=== PATIENT | female | born 1940 | race Caucasian/White ===

== ENCOUNTER 2016-12-28 15:50 | Emergency (ER) | payer MEDICARE ==
[2016-12-28 18:24] LABS: Hemoglobin 13.5 gm/dL (12.5-16.0); Mean Cell Volume 101.9 fl (78-100); Mean Corpuscular Hgb Conc 31.4 g/dl (32-36); Mean Platelet Volume 10.6 fl (6.0-9.5); Neutrophil # 9.7 K/mm3 (1.3-6.0); Neutrophil % 75.4 % (42-75.0); Platelet Count 181 K/mm3 (150-450); Red Blood Count 4.22 M/mm3 (4.2-5.4); Red Cell Distribution Width 14.9 % (11.5-14.0); White Blood Count 12.8 K/mm3 (4.0-10.5)
[2016-12-28 18:34] LABS: Anion Gap 12.2 mmol/L (6.8-13.8); BUN/Creatinine Ratio 13.2 (9.0-21.6); Calcium * 9.3 mg/dL (7.9-10.9); Carbon Dioxide 29.9 mmol/L (24-32.6); Estimated Creat Clear 26.9; Potassium 4.1 mmol/L (3.4-4.6)
--- NOTE | 2016-12-28 18:57 | ERNOTE ---
ER Female HPI Date of Service: 12/28/16 Stated Complaint: UTI, NOT URINATING Time Seen by Provider: 12/28/16 18:36 Immunizations: IMMUNIZATION HX Immunizations Up to Date Yes History of Influenza Vaccine Yes Hx Pneumococcal Vaccination Yes Allergies/Adverse Reactions: Allergies Penicillins Allergy (Severe, Verified 12/28/16 16:14) Other states makes her stop breathing Home Medications: HOME MEDICATIONS ALPRAZolam [Xanax] 0.5 mg PO BID 11/25/15 [Last Taken Unknown] Aspirin [Aspirin EC] 81 mg PO DAILY 11/25/15 [Last Taken Unknown] Carbidopa/Levodopa 25/100 [Sinemet 25/100] 1 tab PO QID 11/25/15 [Last Taken Unknown] Ergocalciferol (Vitamin D2) [Vitamin D2] 1.25 unit PO Q7D 11/25/15 [Last Taken Unknown] Fluconazole [Diflucan] 200 mg PO DAILY 11/25/15 [Last Taken Unknown] Levothyroxine Sodium [Synthroid] 50 mcg PO DAILY 11/25/15 [Last Taken Unknown] Lisinopril [Zestril] 20 mg PO DAILY 11/25/15 [Last Taken Unknown] Mirtazapine [Remeron] 30 mg PO HS 11/25/15 [Last Taken Unknown] Propranolol HCl 80 mg PO DAILY 11/25/15 [Last Taken Unknown] Venlafaxine HCl [Effexor Xr] 150 mg PO DAILY 11/25/15 [Last Taken Unknown] - History of Present Illness Narrative: 76yo, F, presents to ER for UTI and concerns of UO. She was having dysuria and urinary frequency 2 days ago. She presented a UA to Dr. Crooks's office at 7: 00am and was started on Bactrim DS BID x3 days. She had not voided since 07:00am , until 6pm when she voided 1/2 UA cup full of urine in ER. Her dtrs are with her today and concerned as she has hx of Renal failure with creat of 4 in 2015. Modifying Factors - (Improves): Present: other - nothing Modifying Factors - (Worsens): Present: urinating Associated Symptoms: Present: abdominal pain - suprapubic, dysuria, urinary frequency. Absent: fever/chills, nausea, vomiting Review of Systems - Review of Systems Constitutional: Present: weakness. Absent: fever, chills Gastrointestinal/Abdominal: Present: abdominal pain - suprapubic region. Absent : nausea, vomiting, diarrhea - chronic, constipation Genitourinary: Present: frequency - on 12/26/16, decreased urinary output, other - concentrated urine. Absent: dysuria, hematuria - Patient's Past Medical History Patient History - Medical: Anemia, Anxiety, Depression, GERD, Migraines Patient History - Cardiac/Respiratory: No pertinent hx Patient History - Cancer: No Hx of Cancer Patient History - Surgical Procedures: Colonoscopy, Coronary Bypass Surgery, Hysterectomy, T & A, Other Patient History - Other: None - Family History Father Family History - Medical: , History Unknown Mother Family History - Medical: , History Unknown Family History - Cardiac/Respiratory: History Unknown - Social History Living Situations: alone Abuse History: No History of abuse Psych History: No pertinent hx Alcohol Use: none Drug Use: none - Immunizations Immunizations Up to Date: Yes Hx Pneumococcal Vaccination: Yes History of Influenza Vaccine: Yes Physical Exam - Physical Exam General Appearance: Present: wd/wn, alert, no apparent distress, other - pt in good spirits, making jokes about her dtr's to provider Respiratory: Present: no respiratory distress, normal breath sounds, chest nontender. Absent: crackles, rhonchi, wheezing Cardiovascular/Chest: Present: regular rate, rhythm, no murmur Gastrointestinal/Abdominal: Present: normal bowel sounds, nontender, nondistended, soft Back Exam: Present: no CVA tenderness Neurological Exam: Present: alert, oriented, normal mood/affect Skin Exam: Present: normal color, warm/dry ED Progress - Date and Time Seen: Date and Time: 12/28/16 21:08 Spoke with pt and dtr's in room. IVFs infusing. Family states she performs 4 breathing tx daily. they are requesting her Albuterol tx before dc, to prevent SOB when getting into the car. 12/28/16 22:45 Pt attempted to void, but unsuccessful. Iglesias cath inserted returning 175 UO. She then had an additional 30ml of clear yellow urine returned. pt reports to be feeling well and would like to be discharged home. Discussed importance of close monitoring, good fluid intake and monitoring UO at home. Advised to call Dr. Crooks's office tomorrow to discuss ER visit and f/u appt. They will return to ER if situation worsens or if not having adequate UO - Results and Orders Patient's Lab Results:: I have reviewed the patient's lab results. - Vital Signs Patient's Vital Signs:: I have reviewed the patient's vital signs. Vital Signs: Vital Signs 12/28/16 12/28/16 16:10 17:39 Temperature 36.4 C L Pulse Rate 84 82 Respiratory 12 12 Rate Blood Pressure 104/46 108/56 O2 Sat by Pulse 97 97 Oximetry - Progress/Reassessment Chief Complaint: Genitourinary Problem Progress:: Improved Departure Clinical Impression: Creatinine elevation UTI (urinary tract infection) Qualifiers: Urinary tract infection type: acute cystitis Hematuria presence: without hematuria Qualified Code(s): N30.00 - Acute cystitis without hematuria - Departure Disposition: Home self-care Condition: Stable Instructions: Urinary Tract Infection, Adult, [id number] Additional Instructions: Assure adequate fluid intake Measure urine output at home and keep log Call Dr. Crooks's office in am and notify of ER visit and home urine output and to schedule follow up appointment Continue antibiotics as ordered Return to ER if situation worsens or for any new or concerning symptoms Referrals: Ryanne Crooks DO [Primary Care Provider] -
[2016-12-28] MEDS ORDERED: NORMAL SALINE 1,000 ML IV ONE (19:09)
[2016-12-28] MEDS ORDERED: SULFAMETHOXAZOLE/TRIMETHOPRIM 1 TAB TABLET PO ONE (19:10)
[2016-12-28] MEDS ORDERED: SULFAMETHOXAZOLE/TRIMETHOPRIM 1 TAB TABLET ONE (19:12)
[2016-12-28] MEDS ORDERED: ALBUTEROL SULFATE 2.5 MG/0.5 ML VIAL.NEB IH ONE ×2 (21:06→21:09)
[2016-12-28 23:28] VITALS: BP 129/78
== END 2016-12-28 23:01 | disposition home or self-care (01) ==
LOC: ER 15:50
PROC: 0T9B70Z Drainage of Bladder with Drainage Device, Via Natural or Artificial Opening (ICD-10-PCS; principal; 2016-12-28)
DX: R94.4 Abnormal results of kidney function studies (principal); N30.00 Acute cystitis without hematuria; D64.9 Anemia, unspecified; K21.9 Gastro-esophageal reflux disease without esophagitis; F41.8 Other specified anxiety disorders

== ENCOUNTER 2017-05-15 11:35 | Emergency (ER) | payer MEDICARE ==
[2017-05-15 11:51] VITALS: BP 140/73
[2017-05-15] MEDS ORDERED: ALBUTEROL SULFATE 2.5 MG/0.5 ML VIAL.NEB IH ONE ×2 (12:00→12:18)
[2017-05-15] MEDS ORDERED: METHYLPREDNISOLONE SOD SUCC/PF 40 MG/ML VIAL IV ONE (12:06)
--- NOTE | 2017-05-15 12:06 | ERNOTE ---
Date of Service: 05/15/17 Time Seen by Provider: 05/15/17 11:53 Stated Complaint: URI Presenting Symptoms:: cough, sore throat, runny nose, fever Source: patient, family Exam Limitations: no limitations Immunizations: IMMUNIZATION HX Immunizations Up to Date Yes History of Influenza Vaccine Yes Hx Pneumococcal Vaccination Yes Allergies/Adverse Reactions: Allergies Penicillins Allergy (Severe, Verified 12/28/16 16:14) Other states makes her stop breathing Home Medications: HOME MEDICATIONS ALPRAZolam [Xanax] 0.5 mg PO BID 11/25/15 [Last Taken Unknown] Aspirin [Aspirin EC] 81 mg PO DAILY 11/25/15 [Last Taken Unknown] Carbidopa/Levodopa 25/100 [Sinemet 25/100] 1 tab PO QID 11/25/15 [Last Taken Unknown] Ergocalciferol (Vitamin D2) [Vitamin D2] 1.25 unit PO Q7D 11/25/15 [Last Taken Unknown] Fluconazole [Diflucan] 200 mg PO DAILY 11/25/15 [Last Taken Unknown] Levothyroxine Sodium [Synthroid] 50 mcg PO DAILY 11/25/15 [Last Taken Unknown] Lisinopril [Zestril] 20 mg PO DAILY 11/25/15 [Last Taken Unknown] Mirtazapine [Remeron] 30 mg PO HS 11/25/15 [Last Taken Unknown] Propranolol HCl 80 mg PO DAILY 11/25/15 [Last Taken Unknown] Venlafaxine HCl [Effexor Xr] 150 mg PO DAILY 11/25/15 [Last Taken Unknown] Levofloxacin [Levaquin] 750 mg PO DAILY #10 tab 05/15/17 [Last Taken Unknown] Methotrexate Sodium [Methotrexate] 2.5 mg PO 05/15/17 [Last Taken Unknown] predniSONE [Prednisone] 3 tab PO DAILY #9 tab 05/15/17 [Last Taken Unknown] - History of Present Ilness Narrative: Pt. comes in with daughters and c/o cough, sore throat, fever, SOB, sinus congestion, and rhinorrhea for a week. Pt. denies any CP, NVD, alleviating or aggravating factors but pt. daughters states that she seems kind of confused and that she has been using her nebulizer more frequently in the past week. Timing: getting worse Severity: moderate Frequency/Possible Cause: Reports: occasional episodes, unknown cause Modifying Factors - Improves: Reports: nothing Modifying Factors - Worsens: Reports: nothing Associated Symptoms: Reports: cough, shortness of breath, wheezing, nasal congestion, nasal drainage, sore throat. Denies: chest pain/soreness, facial pain, dizziness, lightheadedness, earache, muscle aches, fever/chills Prior Treatment: Denies: recently seen, treated by physician, recently hospitalized, currently on antibiotics Review of Systems - Review of Systems Constitutional: Present: fever, weakness, fatigue, malaise. Absent: chills, weight loss, decreased activity level EYE: Present: no symptoms reported ENT: Present: nose congestion, nasal drainage, sore throat. Absent: ear pain, ear discharge, nose pain, throat swelling Respiratory: Present: shortness of breath, cough, orthopnea, wheezing. Absent: stridor Cardiology: Present: no symptoms reported. Absent: chest pain, palpitations, syncope, edema, claudication Gastrointestinal/Abdominal: Present: no symptoms reported. Absent: nausea, vomiting, diarrhea, abdominal pain, eating less, drinking less Genitourinary: Present: no symptoms reported. Absent: frequency, decreased urinary output Musculoskeletal: Present: no symptoms reported. Absent: back pain, neck pain, joint pain Skin: Present: no symptoms reported. Absent: rash, dryness, lesions, lumps, change in color Neurological: Present: no symptoms reported. Absent: headache, dizziness/light- headedness, numbness, tingling Endocrine: Present: no symptoms reported Hematologic/Lymphatic: Present: no symptoms reported. Absent: easy bruising, easy bleeding All Other Systems: All systems neg except as marked - Patient's Past Medical History Patient History - Medical: Anemia, Anxiety, Depression, GERD, Hypothyroidism, Migraines, Rheumatoid Arthritis Patient History - Cardiac/Respiratory: Hypertension Patient History - Cancer: No Hx of Cancer Patient History - Surgical Procedures: Colonoscopy, Coronary Bypass Surgery, Hysterectomy, T & A, Other Patient History - Other: None - Family History Father Family History - Medical: , History Unknown Mother Family History - Medical: , History Unknown Family History - Cardiac/Respiratory: History Unknown - Social History Living Situations: home Abuse History: No History of abuse Psych History: Hx of Anxiety, Hx of Depression Smoking Status: Former smoker Have you smoked in the past 12 months: No Do you dip or chew tobacco: No Alcohol Use: none Drug Use: none - Immunizations Immunizations Up to Date: Yes Hx Pneumococcal Vaccination: Yes History of Influenza Vaccine: Yes Physical Exam - Physical Exam General Appearance: Present: wd/wn, alert, no apparent distress Head Exam: Present: normal inspection, no evidence of injury, no tenderness w palpation Eye Exam: Normal inspection: bilateral Ears, Nose, Throat: Present: nasal congestion, pharyngeal erythema Neck: Present: normal inspection, nontender, supple, full range of motion. Absent: lymphadenopathy (R), lymphadenopathy (L) Respiratory: Present: no respiratory distress, no accessory muscle use, chest nontender, rhonchi - RML RUL, wheezing - BUL insp and exp Cardiovascular/Chest: Present: regular rate, rhythm, no murmur, normal peripheral pulses Gastrointestinal/Abdominal: Present: normal bowel sounds, nontender, nondistended, soft, no organomegaly Back Exam: Present: normal inspection, normal range of motion, no CVA tenderness , no vertebral tenderness Extremity Exam: Present: normal inspection, non-tender, normal range of motion, no edema Neurological Exam: Present: alert, oriented, normal mood/affect, no motor/ sensory deficits Skin Exam: Present: normal color, warm/dry. Absent: pallor, skin rash ED Progress - Results and Orders Patient's Lab Results:: I have reviewed the patient's lab results. - Vital Signs Patient's Vital Signs:: I have reviewed the patient's vital signs. Vital Signs: Vital Signs 05/15/17 11:45 Temperature 37.5 C Pulse Rate 106 H Respiratory 20 Rate Blood Pressure 140/73 O2 Sat by Pulse 93 Oximetry - EKG EKG: other - Sinus tachycardia, nonspecific anterior ST abnormality, no acute - X-Ray X-Ray #1 X-Ray: chest Interpretation: Reviewed by me X-ray Comments: No acute consolidation - Progress/Reassessment Chief Complaint: Upper Respiratory Symptoms Progress:: Improved Departure Clinical Impression: Bronchitis, COPD exacerbation UTI (urinary tract infection) Qualifiers: Urinary tract infection type: acute cystitis Hematuria presence: without hematuria Qualified Code(s): N30.00 - Acute cystitis without hematuria - Departure Disposition: Home self-care Condition: Good Instructions: Urinary Tract Infection, Adult, [id number], Acute Bronchitis, [id number] Additional Instructions: Please increase fluid intake continue Advair and Duonebs as ordered. Referrals: Ryanne Crooks DO [Primary Care Provider] - Prescriptions: Levofloxacin [Levaquin] 750 mg PO DAILY #10 tab predniSONE [Prednisone] 3 tab PO DAILY #9 tab
[2017-05-15 12:16] LABS: Hematocrit 39.7 % (37.0-47.0); Hemoglobin 12.8 gm/dL (12.5-16.0); Mean Corpuscular Hemoglobin 32.6 pg (27-31); Mean Corpuscular Hgb Conc 32.2 g/dl (32-36); Mean Platelet Volume 10.2 fl (6.0-9.5); Neutrophil # 13.1 K/mm3 (1.3-6.0); Neutrophil % 83.4 % (42-75.0); Platelet Count 148 K/mm3 (150-450); Red Blood Count 3.93 M/mm3 (4.2-5.4); Red Cell Distribution Width 16.1 % (11.5-14.0); White Blood Count 15.7 K/mm3 (4.0-10.5)
[2017-05-15] MEDS ORDERED: METHYLPREDNISOLONE SOD SUCC/PF 40 MG/ML VIAL ONE (12:18)
[2017-05-15 12:34] LABS: Albumin * 3.1 gm/dl (3.4-5.0); Anion Gap 13.3 mmol/L (6.8-13.8); BUN/Creatinine Ratio 12.4 (9.0-21.6); Bilirubin, Total 0.9 mg/dL (0.0-1.1); Ca. Corrected For Albumin 9.3 mg/dL (8.4-10.2); Calcium * 8.9 mg/dL (7.9-10.9); Carbon Dioxide 28.5 mmol/L (24-32.6); Potassium 3.8 mmol/L (3.4-4.6); Total Protein 7.2 gm/dL (6.2-8.2)
[2017-05-15 13:18] LABS: Urine Bilirubin Negative (NEGATIVE); Urine Blood Negative /ul (NEGATIVE); Urine Ketone Negative (NEGATIVE); Urine Nitrite Negative (NEGATIVE); Urine Protein Negative (NEGATIVE); Urine Specific Gravity 1.015 SP.GR. (1.005-1.010); Urine Urobilinogen Normal (NORMAL)
[2017-05-15 13:26] LABS: Urine Appearance Slightly Cloudy; Urine Bacteria 1+; Urine Color Yellow; Urine RBC None Seen /hpf (0-5); Urine WBC 0-5 /hpf (0-5)
== END 2017-05-15 14:27 | disposition home or self-care (01) ==
LOC: ER 11:35
DX: J40 Bronchitis, not specified as acute or chronic (principal); J44.1 Chronic obstructive pulmonary disease with (acute) exacerbation; Z87.891 Personal history of nicotine dependence; N30.00 Acute cystitis without hematuria